=== PATIENT | male | born 1955 | race Caucasian/White ===

== ENCOUNTER → 2016-10-02 | Outpatient (CLI) | payer BC ==
[~2016-10-02] MED LIST: Ambien PO; CELEBREX200 MG PO; CENTRUM SILV1 TABLE1 PO; FEOSOL325 MG PO; SENOKOT S,PE1 TABLET PO; Vicodin,Lortab 5/500 PO
== END | disposition home or self-care (01) ==
DX: M17.11 Unilateral primary osteoarthritis, right knee (principal); M25.561 Pain in right knee; M25.661 Stiffness of right knee, not elsewhere classified; R26.2 Difficulty in walking, not elsewhere classified; M62.89 Other specified disorders of muscle
CPT/HCPCS: 97110 GP; 97150 GO; 97161 GP; 97165 GO

== ENCOUNTER 2016-10-30 08:10 | Inpatient (IN) | payer BC ==
[~2016-10-30] VITALS: Ht 188 cm; Wt 90.7 kg
[~2016-10-30 08:10] MED LIST changes: +IRON325 M1 PO; +ULTRAM50 MG PO
[2016-10-30 08:54] VITALS: BP 156/72
[2016-10-30 14:34] VITALS: BP 163/80
[2016-10-30 16:00] VITALS: BP 138/69
[2016-10-30 20:20] VITALS: BP 151/75
[2016-10-30 20:36] VITALS: BP 135/70; BP 142/72
[2016-10-30 23:30] VITALS: BP 135/70
[2016-10-31 04:15] VITALS: BP 126/67
[2016-10-31 05:20] LABS: HEMATOCRIT 36.2 % (38.0-50.0); MCV 90.7 FL (86-99)
[2016-10-31 08:30] VITALS: BP 125/68
[2016-10-31 12:00] VITALS: BP 130/77
[2016-10-31 20:14] VITALS: BP 143/69
[2016-11-01 00:06] VITALS: BP 121/73
[2016-11-01 03:30] VITALS: BP 120/66
[2016-11-01 04:59] LABS: HEMATOCRIT 35.1 % (38.0-50.0); MCV 90.5 FL (86-99)
[2016-11-01 08:10] VITALS: BP 119/64
[2016-11-01] MEDS ORDERED: ASPIRIN EC325 MG PO (08:38)
[2016-11-01] MEDS ORDERED: SENNA PLUS TAB1 EACH PO (08:39)
[2016-11-01] MEDS ORDERED: OXYCONTIN10 MG PO (08:39)
[2016-11-01] MEDS ORDERED: CELECOXIB200 MG PO (08:39)
[2016-11-01] MEDS ORDERED: ENDOCET 5-3251 EACH PO (08:39)
[2016-11-01] MEDS ORDERED: ADULT FOLDING1 EACH MC (08:40)
[2016-11-01 11:34] VITALS: BP 104/57
[2016-11-01 14:29] VITALS: BP 137/69
== END 2016-11-01 14:43 | DRG 470 ==
LOC: 2SOUTH 08:10 → 3WEST 13:50 → 2SOUTH 16:14 → 3WEST 11-01 14:43
PROVIDERS: Orthopaedic Surgery
PROC: 0SRC0J9 Replacement of Right Knee Joint with Synthetic Substitute, Cemented, Open Approach (ICD-10-PCS; principal; 2016-10-30)
DX: M17.11 Unilateral primary osteoarthritis, right knee (principal)
CPT/HCPCS: 85014; 85018; J0690; J1170; J1885; J2250; J2405; J3370; J7050; J7120; S0020